=== PATIENT | male | born 1965 | race Caucasian/White ===

== ENCOUNTER 2021-07-14 23:33 | Emergency (ER) | payer MEDICAID ==
[~2021-07-14] VITALS: Ht 172.7 cm; Wt 72.6 kg
[2021-07-14 23:45] VITALS: BP_SYST 136
--- NOTE | 2021-07-14 23:45 | NUR ---
Patient ambulatory to bed 4 for evaluation
--- NOTE | 2021-07-15 00:01 | NUR ---
ER at bedside examining patient.
--- NOTE | 2021-07-15 00:10 | NUR ---
PT AAOX4, SKIN W/D TO TOUCH RODRIGUES. W/ C/O L BUTTOCKS PAIFUL ABSCESS. PENDING MD LUTHER
[2021-07-15] MEDS ORDERED: LIDOCAINE 1% 10 MG/ML, 20 ML MDV INJ ONE (00:15)
--- NOTE | 2021-07-15 00:24 | NUR ---
SEEN BY ER . I &D ATTEMPTED, ENDURATION W/ NO EXCUDATE OR FLUID. PT FOR F/U IN 2 DAYS FOR RE-EVAL OF ANAL PAINFUL ENDURATION ABSCESS.
[2021-07-15] MEDS ORDERED: AMOX-426 PO (00:29)
[2021-07-15] MEDS ORDERED: IBUP-1969 PO (00:29)
[2021-07-15 00:50] VITALS: BP_SYST 131
--- NOTE | 2021-07-15 00:50 | NUR ---
Patient given written and verbal discharge instructions and verbalizes understanding. ER MD discussed with patient the results and treatment provided. Patient in stable condition. ID arm band removed. Rx of Amoxicillin, ibuprofen given. Patient educated on pain management and to follow up with PMD. Pain Scale 0/10.Opportunity for questions provided and answered.
== END 2021-07-15 00:50 | disposition home or self-care (01) ==
LOC: SED 23:33
DX: K61.0 Anal abscess (principal)
CPT/HCPCS: 99283; 99284